=== PATIENT | female | born 1990 | race Caucasian/White ===

== ENCOUNTER 2017-10-14 11:51 | Emergency (ER) | payer BC ==
[~2017-10-14] VITALS: Ht 154.9 cm; Wt 50.9 kg
[~2017-10-14 11:51] MED LIST: KEFLEX500 MG PO; LANTUS100 UNIT/1 SQ; NOVOLOG100 UNIT/1 SQ
[2017-10-14 12:47] LABS: HEMATOCRIT 42.4 % (36.0-46.0); MCH 32.8 PG (29.0-34.0); MCHC 35.4 G/DL (30.0-36.0); MCV 92.8 FL (83-99); RBC DIS.WIDTH-CV 12.2 % (11.8-14.6); RBC DIS.WIDTH-SD 41.7 % (39-53); RED BLOOD COUNT 4.57 M/uL (3.80-5.20); WHITE BLOOD COUNT 10.7 K/uL (4.1-10.2)
[2017-10-14 13:00] LABS: APPEARANCE CLEAR ((CLEAR)); BILIRUBIN NEGATIVE; BLOOD NEGATIVE; COLOR YELLOW ((YELLOW)); GLUCOSE (STRIP) 50; KETONES NEGATIVE; LEUKOCYTES NEGATIVE; NITRITE NEGATIVE; PROTEIN (STRIP) NEGATIVE; UCUL ADDED? NO; UROBILINOGEN 0.2 MG/DL (0.2-1.0)
[2017-10-14 13:11] LABS: ALBUMIN 4.2 G/DL (3.2-4.8); CHLORIDE 104 MEQ/L (99-109); POTASSIUM 4.2 MEQ/L (3.7-5.4); SODIUM 140 MEQ/L (136-147); TOTAL BILIRUBIN 0.9 MG/DL (0.0-1.0)
[2017-10-14 13:16] LABS: ALKALINE PHOSPHATASE 63 IU/L (3-129); ALT (GPT) 9 IU/L (3-49); AST (GOT) 14 IU/L (2-34); CREATININE 0.8 MG/DL (0.6-1.3); GFR ESTIMATE (CALCULATED) > 59 mL/min/; GLUCOSE 116 mg/dL (70-99); LIPASE 14 U/L (1.0-51.0); TOTAL PROTEIN 6.5 G/DL (6.4-8.3); UREA NITROGEN (BUN) 10 mg/dL (9-23)
[2017-10-14 13:18] LABS: QUANTITATIVE HCG < 4.0 MIU/ML
[2017-10-14 13:19] LABS: PLAT.SUFFICIENCY ADEQUATE; PLATELET COUNT 239 K/uL (156-360)
[2017-10-14] MEDS ORDERED: ZOFRAN ODT4 MG PO (14:48)
[2017-10-14] MEDS ORDERED: ULTRAM50 MG PO (14:48)
[2017-10-14 15:09] VITALS: BP 117/83
== END 2017-10-14 15:11 | disposition home or self-care (01) ==
LOC: EME 11:51
DX: N83.201 Unspecified ovarian cyst, right side (principal); E11.9 Type 2 diabetes mellitus without complications; F17.200 Nicotine dependence, unspecified, uncomplicated; Z79.4 Long term (current) use of insulin; Z98.890 Other specified postprocedural states; Z88.0 Allergy status to penicillin
CPT/HCPCS: 76856; 80053; 81003; 83690; 84702; 85027; 99281; 99284